=== PATIENT | male | born 1975 | race Caucasian/White ===

== ENCOUNTER 2016-12-31 22:58 | Inpatient (IN) ==
[2016-12-31] MEDS ORDERED: ONDANSETRON 4 MG/2 ML VIAL IV STA (23:29)
[2016-12-31] MEDS ORDERED: KETOROLAC 30 MG/1 ML VIAL IV STA (23:29)
[2016-12-31] MEDS ORDERED: METOCLOPRAMIDE 10 MG/2 ML VIAL IV STA (23:29)
[2016-12-31] MEDS ORDERED: SODIUM CHLORIDE 0.9% 1,000 ML IV STA (23:29)
[2016-12-31] MEDS ORDERED: PANTOPRAZOLE 40 MG VIAL IV STA (23:29)
--- NOTE | 2016-12-31 23:34 | Emergency Department Note ---
Arrival - Arrival Chief Complaint: Abdominal / Flank Pain Stated Complaint: upper abd. pain ED Nursing Triage Note: C/O UPPER RIGHT ABD PAIN WITH ONSET 1800 YESTERDAY EVENING. + NAUSEA Mode of Arrival: Ambulatory Limitations: No Limitations Source: Patient Time Seen by Provider: 12/31/16 23:29 - History of Present Illness HPI Narrative: This 41-year-old white male presents with 24 hours of progressive nausea, right upper quadrant pain, periumbilical pain radiating to the back, a history of recurrent pancreatitis, history of chronic constipation, and a history of cholecystectomy for stones a year ago. The patient denies chills or fever. Of note, associated with onset of the symptoms has been a darkening of urine. Currently although uncomfortable he is in no acute medical distress. Onset (ago): hour(s) (Patient presents 24 hours post onset of symptoms) Allergies/Adverse Reactions: Allergies Allergy/AdvReac Type Severity Reaction Status Date / Time No Known Allergies Allergy Unverified 11/09/15 21:07 Home Medications: Home Medications Medication Instructions Recorded Confirmed Type Insulin Glargine [Lantus] 100 unit SUBCUT BEDTIME 08/30/15 11/02/15 History oxyCODONE/ACETAMINOPHEN 5-325 1 - 2 tablet PO Q6H PRN #20 tablet 11/02/15 Rx [Percocet 5-325] Insulin Glargine [Lantus] 100 unit SUBCUT BEDTIME 11/09/15 11/09/15 History HYDROcodone/ACETAMIN 7.5-325 1 tablet PO Q4H #20 tablet 11/10/15 Rx [[place] 7.5-325] Ondansetron Odt Tab [Zofran Odt] 8 mg PO Q8H #12 tablet 11/10/15 Rx HYDROcodone/ACETAMIN 7.5-325 1 tablet PO Q6H PRN #20 tablet 09/28/16 Rx [[place] 7.5-325] Ondansetron Odt Tab [Zofran Odt] 4 mg PO Q8H PRN #10 tablet 09/28/16 Rx Review of System - Review of System 12 point system: reviewed and no additional remarkable complaints except as stated - Review of System Constitutional: Present: as per HPI Gastrointestinal: Present: as per HPI Genitourinary male: Present: as per HPI Medical,Surgical,& Family Hx - Medical History Endocrine: History of: Diabetes Mellitus (IDDM), Diabetes Mellitus (NIDDM), Dyslipidemia Rheumatology: History of;: Myasthenia Gravis Genitourinary: History of: Kidney Stones Gastrointestinal: History of: Liver Problems (cyst), Pancreatitis (9 TIMES), GI Problems (CHRONIC CONSTIPATION) Musculoskeletal: History of: Musculoskeletal Problems (KNEE AND SHOULDER) Other: History of: Miscellaneous Medical Problems (Splean surg) - Surgical History Cardiac Surgeries: Patient Denies: Cardiac Catheterization Abdominal Surgeries: Surgical HX of: Abdominal Surgery (he states he's had some type of abdominal surgery for repair of the spleen), Cholecystectomy Reproductive Surgeries: Patient denies;: Genitourinary Surgery Orthopedic Surgeries: Surgical HX of;: Orthopedic Surgery (states he's had knee surgery on the left 4 and right shoulder surgery 1) - Family History Family History: Reports;: Family Diabetes, Family Hypertension - Social History Smoking Status: Current every day smoker Frequency of Alcohol Use: None Type of Drug Use: None Exam Physical Examination: GENERAL: Well developed, well nourished white male in no acute distress. HEENT: Normocephalic. No trauma. Moist mucous membranes. EOMI. PERRLA. ENT NML NECK: Supple. No adenopathy. CARDIAC: Regular. No murmurs. CHEST: Clear to auscultation. No respiratory distress. ABDOMEN: Soft. Tender both right upper quadrant and periumbilical with hypoactive bowel sounds. EXTREMITIES: No trauma. Normal ROM. No pedal edema. SKIN: No diaphoresis. No rash. NEURO: Alert. Neuro intact. No focal deficits. Vital Signs: Vital Signs Temperature 97.7 F 12/31/16 23:15 Pulse Rate 80 12/31/16 23:15 Respiratory Rate 18 12/31/16 23:15 Blood Pressure 140/109 12/31/16 23:15 O2 Sat by Pulse Oximetry 97 12/31/16 23:04 Course - Reevaluation(s) Reevaluation #1: I have advised the patient of his acute pancreatitis and need for hospitalization. - Consultations Consultation #1: Discussed with the hospitalist who will admit for further evaluation treatment. Results - Labs CBC & BMP: 12/31/16 23:25 12/31/16 23:25 Labs: I reviewed the patient's laboratory noted very elevated lipase. Disposition Clinical Impression: Acute pancreatitis
[2016-12-31] MEDS ORDERED: PANTOPRAZOLE 40 MG VIAL IV ONE (23:45)
[2016-12-31] MEDS ORDERED: KETOROLAC 30 MG/1 ML VIAL ONE (23:45)
[2016-12-31] MEDS ORDERED: METOCLOPRAMIDE 10 MG/2 ML VIAL ONE (23:45)
[2016-12-31] MEDS ORDERED: ONDANSETRON 4 MG/2 ML VIAL ONE (23:45)
[2016-12-31 23:46] LABS: Apearance,Urine Slightly Hazy (Clear); Bilirubin,Urine Negative (Negative); Blood, Urine Negative (Negative); Glucose,Urine (UA) 150 mg/dL (Negative); Hyaline Casts,Urine 7 /LPF (0-3); Ketones,Urine 5 mg/dL (Negative); Mucus,Urine Many /LPF (Occasional); Nitrite,Urine Negative (Negative); Protein,Urine >=500 MG/DL; RBC,Urine 2 /HPF (0-4); Squamous Epithelial Cell,Urine Occasional /HPF (0-10); Urine Color Amber (Yellow); Urine Specific Gravity 1.028 (1.001-1.035); Urine Urobilinogen < 2.0 EU/DL (0.2-1.0); WBC,Urine 2 /HPF (0-6)
[2016-12-31 23:58] LABS: Barbiturates Screen,Urine Negative (Negative); Benzodiazepines Screen,Urine Negative (Negative); Cannabinoid Screen,Urine Negative (Negative); Opiate Screen,Urine Negative (Negative); Phencyclidine Screen,Urine Negative (Negative)
[2017-01-01] LABS: Basophils # 0.1 10*3/uL (0.0-0.2); Basophils % 0.5 % (0.0-0.8); Eosinophils # 0.2 10*3/uL (0.0-0.87); Eosinophils % 1.6 % (0.00-10.9); Hematocrit 43.3 VOL% (42.0-52.0); Hemoglobin 16.7 GM/DL (14.0-18.0); Immature Granulocytes % 0.5 %; Immature Granulocytes Absolute 0.05 #; Lymphocytes # 2.7 10*3/uL (1.4-4.0); Lymphocytes % 24.3 % (21.2-54.2); Mean Corpuscular HGB Conc 38.6 GM/DL (32-36); Mean Corpuscular Hemoglobin 33 PG (27-34); Mean Corpuscular Volume 85.1 FL (87-102); Mean Platelet Volume 11.1 FL (9.6-12.0); Monocytes # 0.5 10*3/uL (0.11-0.8); Monocytes % 4.9 % (1.7-12.7); Neutrophils # 7.5 10*3/uL (1.4-7.4); Neutrophils % 68.2 % (38.7-73.9); Platelet Count 223 T/CUMM (130-400); Red Blood Count 5.09 MC/CUMM (3.8-5.5); Red Cell Distribution Width 13.7 % (9.3-17.3)
[2017-01-01 00:54] LABS: Alanine Aminotransferase 51 U/L (16-61); Albumin 3.4 G/DL (3.4-5.0); Alkaline Phosphatase 110 U/L (45-117); Amylase 81 U/L (25-115); Blood Urea Nitrogen 9 MG/DL (7-18); Calcium 7.6 MG/DL (8.5-10.1); Glucose 223 MG/DL (74-106); Osmolality,Calculated 273.2 MOS/KG (273-304); Potassium 4.9 MMOL/L (3.5-5.1); Sodium 134 MMOL/L (136-145); Troponin I Only < 0.015 NG/ML (0.00-0.045)
[2017-01-01 00:56] LABS: Aspartate Amino Transferase 77 U/L (0-37)
[2017-01-01] MEDS ORDERED: ONDANSETRON 4 MG/2 ML VIAL IV PRN (02:44)
[2017-01-01] MEDS ORDERED: GLUCAGON 1 MG VIAL IM PRN (02:50)
[2017-01-01] MEDS ORDERED: DEXTROSE 50% 25 GM/50 ML VIAL IV PRN (02:50)
--- NOTE | 2017-01-01 03:22 | Hospitalist History & Physical ---
Assessment and Plan (1) Abdominal pain Status: Acute Current Visit: No (2) Acute pancreatitis Status: Acute Current Visit: No (3) Diabetes mellitus Status: Chronic Current Visit: No Qualifiers: Diabetes mellitus type: type 2 (4) Hyperlipidemia Status: Chronic Assessment and plan: Our plan for this patient will be admitting him to our service. Keep him n.p.o. Recheck labs in the morning. Accu-Cheks before meals and at bedtime once he started eating but initially will be every 6 hours.. Will use sliding scale as needed initially. CT report is consistent with acute pancreatitis Current Visit: No Qualifiers: Hyperlipidemia type: Pure hyperglyceridemia History of Present Illness Chief complaint: Abdominal pain History of present illness: Mr. Albert is a 41 year old male with past medical history of diabetes, myasthenia gravis and pancreatitis presents to our ER tonight. Patient is complaining of right sided abdominal pain. He says it radiates to her shoulder and ribs. He reports is been going on for 2 days. Reminds him of the pain that he had prior to his cholecystectomy. It does not remind him of the pancreatitis pain that he experienced a few months ago. He reports feeling nauseated. He came up to our hospital for further evaluation. Patient's lipase was elevated and I was consulted to admit the patient. During the previous hospitalization he was found to have elevated triglycerides. Home Medications Medication Instructions Recorded Confirmed Type Insulin Glargine [Lantus] 100 unit SUBCUT BEDTIME 08/30/15 11/02/15 History oxyCODONE/ACETAMINOPHEN 5-325 1 - 2 tablet PO Q6H PRN #20 tablet 11/02/15 Rx [Percocet 5-325] Insulin Glargine [Lantus] 100 unit SUBCUT BEDTIME 11/09/15 11/09/15 History HYDROcodone/ACETAMIN 7.5-325 1 tablet PO Q4H #20 tablet 11/10/15 Rx [[place] 7.5-325] Ondansetron Odt Tab [Zofran Odt] 8 mg PO Q8H #12 tablet 11/10/15 Rx HYDROcodone/ACETAMIN 7.5-325 1 tablet PO Q6H PRN #20 tablet 09/28/16 Rx [[place] 7.5-325] Ondansetron Odt Tab [Zofran Odt] 4 mg PO Q8H PRN #10 tablet 09/28/16 Rx Allergies Allergy/AdvReac Type Severity Reaction Status Date / Time No Known Allergies Allergy Unverified 11/09/15 21:07 Medical,Surgical,& Family Hx - Medical History Endocrine: History of: Diabetes Mellitus (IDDM), Diabetes Mellitus (NIDDM), Dyslipidemia Rheumatology: History of;: Myasthenia Gravis Genitourinary: History of: Kidney Stones Gastrointestinal: History of: Liver Problems (cyst), Pancreatitis (9 TIMES), GI Problems (CHRONIC CONSTIPATION) Musculoskeletal: History of: Musculoskeletal Problems (KNEE AND SHOULDER) Other: History of: Miscellaneous Medical Problems (Splean surg) - Surgical History Cardiac Surgeries: Patient Denies: Cardiac Catheterization Abdominal Surgeries: Surgical HX of: Abdominal Surgery (he states he's had some type of abdominal surgery for repair of the spleen), Cholecystectomy Reproductive Surgeries: Patient denies;: Genitourinary Surgery Orthopedic Surgeries: Surgical HX of;: Orthopedic Surgery (states he's had knee surgery on the left 4 and right shoulder surgery 1) - Family History Family History: Reports;: Family Diabetes, Family Hypertension - Social History Smoking Status: Current every day smoker Frequency of Alcohol Use: None Type of Drug Use: None 12 point system: reviewed and no additional remarkable complaints except as stated Exam - Constitutional Vitals: Period Temp Pulse Resp BP Sys/Oneill Pulse Ox Last 24 Hr 97.7 F-97.7 F 80-80 18-18 140-140/109-109 97 General appearance: over weight - Head Head exam: Present: normal inspection - Eye Eye exam: Present: EOMI Pupils: Present: ARTEMIO - ENT ENT exam: Present: normal exam - Neck Neck exam: Present: normal inspection - Respiratory Respiratory exam: Present: clear to auscultation bilaterally - Cardiovascular Cardiovascular exam: Present: regular rate and rhythm - GI/Abdominal GI/Abdominal exam: Present: hypoactive bowel sounds, tenderness (More prominent in the right quadrants) - Extremities Exam Extremities exam: Present: normal inspection - Back Exam Back exam: Present: normal inspection - Neurological Exam Neurological exam: Present: alert - Psychiatric Psychiatric exam: Present: normal affect - Skin Skin exam: Present: normal color Results - Labs CBC & BMP: 12/31/16 23:25 12/31/16 23:25
[2017-01-01 03:55] LABS: Band Neutrophils 1 % (0-10); Eosinophils 1 % (0-10); Lymphocytes 24 % (20-55); Platelet Estimate Normal; Segmented Neutrophils 70 % (50-85); Total Cells Counted 100
[2017-01-01] MEDS: HYDROmorphone 2 MG/1 ML VIAL IV PRN ×3 (04:58→16:13)
[2017-01-01] MEDS: SODIUM CHLORIDE 0.9% 1,000 ML IV SCH ×3 (04:59→21:56)
--- NOTE | 2017-01-01 07:36 | CT Report ---
CT abdomen pelvis w con Indication: Abdominal pain/pancreatitis Comparison: CT abdomen pelvis dated September 28, 2016 Technique: Multiple axial tomographic images of the abdomen and pelvis were obtained after the administration of 100 cc Omnipaque 350 intravenous contrast. Findings: Mild dependent change of the lung bases present. Stable small lymph node within the anterior supradiaphragmatic location on the right. Small hiatal hernia. Diffuse hypoattenuation of liver suggestive of steatosis. The liver appears prominent. Status post cholecystectomy. There is moderate prominence of the pancreatic head with mild surrounding soft tissue stranding suggestive of edema noted predominately posteriorly. Splenomegaly again noted. Bilateral adrenal glands and kidneys grossly unremarkable. Urinary bladder incompletely distended. Prostate and seminal vesicles grossly unremarkable. No evidence of gastrointestinal obstruction or acute appendicitis. Small fat-containing umbilical and right inguinal hernias. Minimal atherosclerotic calcifications present. Osseous and surrounding soft tissue structures appear grossly unchanged. IMPRESSION: Moderate prominence of the pancreatic head with mild surrounding edema consistent with history of pancreatitis. Other detailed findings including hepatic steatosis, splenomegaly, cholecystectomy, and small hiatal hernia as above. Preliminary report was issued by [facility]. The CT exam was performed using one or more of the following dose reduction techniques: Automated exposure control, adjustment of the mA and/or kV according to patient size, or use of iterative reconstruction technique. PROCEDURE INTERPRETED AT [facility] DEPARTMENT OF RADIOLOGY Final Report Signed by: Dr Rico Segundo
--- NOTE | 2017-01-01 08:16 | XRay Report ---
XR chest 1V portable Indication: SOB Comparison: Chest x-ray dated October 20, 2015 Technique: Single frontal view of the chest Findings: Cardiomediastinal silhouette is stable in configuration. No focal consolidation, pleural effusion, or pneumothorax. Osseous and surrounding soft tissue structures appear grossly unchanged. IMPRESSION: No acute cardiopulmonary process demonstrated. PROCEDURE INTERPRETED AT [facility] DEPARTMENT OF RADIOLOGY Final Report Signed by: Dr Rico Segundo
[2017-01-01] MEDS: INSULIN REGULAR 100 UNIT/ML SUBCUT SCH ×4 (08:41→20:35)
[2017-01-01 08:42] LABS: Basophils # 0.1 10*3/uL (0.0-0.2); Basophils % 0.6 % (0.0-0.8); Eosinophils # 0.2 10*3/uL (0.0-0.87); Eosinophils % 1.9 % (0.00-10.9); Hematocrit 40.6 VOL% (42.0-52.0); Hemoglobin 14.8 GM/DL (14.0-18.0); Immature Granulocytes % 0.4 %; Immature Granulocytes Absolute 0.03 #; Lymphocytes # 2.7 10*3/uL (1.4-4.0); Lymphocytes % 33.6 % (21.2-54.2); Mean Corpuscular HGB Conc 36.5 GM/DL (32-36); Mean Corpuscular Hemoglobin 31 PG (27-34); Mean Corpuscular Volume 85.8 FL (87-102); Monocytes # 0.4 10*3/uL (0.11-0.8); Monocytes % 5.1 % (1.7-12.7); Neutrophils # 4.6 10*3/uL (1.4-7.4); Neutrophils % 58.4 % (38.7-73.9); Platelet Count 132 T/CUMM (130-400); Red Blood Count 4.73 MC/CUMM (3.8-5.5); Red Cell Distribution Width 13.6 % (9.3-17.3); White Blood Count 7.9 T/CUMM (4-12)
[2017-01-01 09:32] LABS: Risk Ratio 13.45
[2017-01-01 09:58] LABS: Albumin 3.1 G/DL (3.4-5.0); Bilirubin,Total 0.6 MG/DL (0.2-1.0); Potassium 3.7 MMOL/L (3.5-5.1)
[2017-01-01 10:15] LABS: Total Protein 5.5 G/DL (6.4-8.3)
[2017-01-01 10:16] LABS: Calcium 7.5 MG/DL (8.5-10.1)
[2017-01-01] MEDS: FENOFIBRATE 145 MG TABLET PO SCH (16:13)
[2017-01-01] MEDS: ATORVASTATIN 40 MG TABLET PO SCH (20:37)
[2017-01-02] MEDS: SODIUM CHLORIDE 0.9% 1,000 ML IV SCH ×2 (05:26→21:35)
[2017-01-02 07:27] LABS: Basophils % 0.5 % (0.0-0.8); Eosinophils # 0.1 10*3/uL (0.0-0.87); Eosinophils % 1.8 % (0.00-10.9); Hematocrit 39.5 VOL% (42.0-52.0); Hemoglobin 14.1 GM/DL (14.0-18.0); Immature Granulocytes % 0.2 %; Immature Granulocytes Absolute 0.01 #; Lymphocytes # 1.7 10*3/uL (1.4-4.0); Lymphocytes % 30.3 % (21.2-54.2); Mean Corpuscular HGB Conc 35.7 GM/DL (32-36); Mean Corpuscular Hemoglobin 31 PG (27-34); Mean Corpuscular Volume 86.1 FL (87-102); Monocytes # 0.3 10*3/uL (0.11-0.8); Monocytes % 4.5 % (1.7-12.7); Neutrophils # 3.5 10*3/uL (1.4-7.4); Neutrophils % 62.7 % (38.7-73.9); Platelet Count 114 T/CUMM (130-400); Red Blood Count 4.59 MC/CUMM (3.8-5.5); Red Cell Distribution Width 13.3 % (9.3-17.3); White Blood Count 5.6 T/CUMM (4-12)
[2017-01-02 08:04] LABS: Calcium 8.2 MG/DL (8.5-10.1); Osmolality,Calculated 274.7 MOS/KG (273-304); Potassium 3.9 MMOL/L (3.5-5.1)
[2017-01-02] MEDS: INSULIN REGULAR 100 UNIT/ML SUBCUT SCH ×4 (09:05→20:28)
[2017-01-02] MEDS: FENOFIBRATE 145 MG TABLET PO SCH (09:06)
--- NOTE | 2017-01-02 16:03 | Hospitalist Progress Note ---
Assessment and Plan (1) Acute pancreatitis Status: Acute Assessment and plan: improving, Lipase level is improving. He is s/p cholecystectomy. He is being treated for elevated triglycerides. Plan -will start clear liquids -Lipase level in am -continue with IVF, pain meds Current Visit: No (2) Hyperlipidemia Status: Chronic Assessment and plan: continue with statins and tricor Current Visit: No Qualifiers: Hyperlipidemia type: Pure hyperglyceridemia (3) Diabetes mellitus Status: Chronic Assessment and plan: continue with SSC insulin, check HbA1c level. Current Visit: No Qualifiers: Diabetes mellitus type: type 2 Hospitalist: Subjective Interval history: Patient seen. He feels better. He had some diarrhoea this am but abdominal pain has improved.Lipase level is improving Exam - Constitutional Vitals: Period Temp Pulse Resp BP Sys/Oneill Pulse Ox Last 24 Hr 97.0 F-99.1 F 58-80 16-18 109-139/62-84 95-98 General appearance: no acute distress - Head Head exam: Present: normal inspection - Eye Eye exam: Present: EOMI - Respiratory Respiratory exam: Present: clear to auscultation bilaterally - Cardiovascular Cardiovascular exam: Present: regular rate and rhythm - GI/Abdominal GI/Abdominal exam: Present: other (mild tenderness) - Extremities Exam Extremities exam: Present: normal inspection Results - Labs CBC & BMP: 01/02/17 06:40 01/02/17 06:40 Lab Results: I have reviewed the past 24 hour labs
[2017-01-02] MEDS ORDERED: ENOXAPARIN 40 MG/0.4 ML SYRINGE SUBCUT SCH (18:00)
[2017-01-02] MEDS: ATORVASTATIN 40 MG TABLET PO SCH (21:36)
[2017-01-03] MEDS: SODIUM CHLORIDE 0.9% 1,000 ML IV SCH (03:22)
[2017-01-03 07:30] LABS: Basophils % 0.7 % (0.0-0.8); Eosinophils # 0.1 10*3/uL (0.0-0.87); Hematocrit 38.4 VOL% (42.0-52.0); Hemoglobin 13.8 GM/DL (14.0-18.0); Immature Granulocytes % 0.2 %; Immature Granulocytes Absolute 0.01 #; Lymphocytes # 1.7 10*3/uL (1.4-4.0); Lymphocytes % 31.3 % (21.2-54.2); Mean Corpuscular HGB Conc 35.9 GM/DL (32-36); Mean Corpuscular Hemoglobin 31 PG (27-34); Mean Corpuscular Volume 86.1 FL (87-102); Mean Platelet Volume 9.8 FL (9.6-12.0); Monocytes # 0.3 10*3/uL (0.11-0.8); Monocytes % 5.8 % (1.7-12.7); Neutrophils # 3.3 10*3/uL (1.4-7.4); Platelet Count 106 T/CUMM (130-400); Red Blood Count 4.46 MC/CUMM (3.8-5.5); Red Cell Distribution Width 13.2 % (9.3-17.3); White Blood Count 5.5 T/CUMM (4-12)
[2017-01-03 08:06] LABS: Bilirubin,Total 0.8 MG/DL (0.2-1.0); Calcium 8.1 MG/DL (8.5-10.1); Osmolality,Calculated 278.4 MOS/KG (273-304); Potassium 3.8 MMOL/L (3.5-5.1); Total Protein 5.6 G/DL (6.4-8.3)
[2017-01-03] MEDS: FENOFIBRATE 145 MG TABLET PO SCH (08:28)
[2017-01-03] MEDS ORDERED: PANTOPRAZOLE 40 MG VIAL IV SCH (09:00)
--- NOTE | 2017-01-03 09:41 | Discharge Summary ---
<Renato Valladaresric - Last Filed: 01/03/17 09:30> Hospital Course - Hospital Course Hospital Course: This patient is a 41-year-old male who was admitted through the [place] ED on with complaints of right-sided abdominal pain. Patient's lipase on admission was 1209 and triglycerides were elevated at 2065. Abdominal CT on admission show moderate prominence of the pancreatic head with mild surrounding edema consistent with history of pancreatitis. The patient was kept n.p.o. and started on IV fluids. He was treated for his elevated triglycerides with statins and TriCor. Hospital course was relatively uncomplicated highlighted a medical management of his hypertriglyceridemia and diabetes. His lipase continued to trend downward with therapy. At this time the patient has reached maximum benefit from hospitalization and is stable for discharge. He will be discharged home to self with appropriate instructions per discharge orders and addendum to followed by Dr. Kaufman. - Time spent with patient Time with patient DS: Greater than 30 minutes Discharge Plan - Discharge Data Disposition: Disch To Home/Self Care - Discharge Medications New Fenofibrate [Tricor] 145 mg PO DAILY #30 tablet Atorvastatin [Lipitor] 40 mg PO BEDTIME #30 tablet HYDROcodone/ACETAMIN 5-325 [[place] 5-325] 1 tablet PO Q6H PRN #20 tablet PRN Reason: Abdominal Pain Continue Insulin Glargine [Lantus] 40 units SUBCUT BEDTIME - Follow Up or Referral - Forms/Instructions Exam - Constitutional Vitals: Period Temp Pulse Resp BP Sys/Oneill Pulse Ox Last 24 Hr 97.1 F-98.8 F 62-72 16-20 114-142/53-81 96-99 Discharge Results Procedures and tests throughout hospitalization: Pending Orders 01/01/17 15:15 Blood Culture Routine 01/02/17 19:27 Stool Culture Routine Labs on day of discharge: Labs from last 24 hours 01/03/17 01/03/17 01/03/17 12:41 07:31 07:07 WBC RBC Hgb Hct MCV MCH MCHC RDW Plt Count MPV Neut % (Auto) Lymph % (Auto) [place] % (Auto) Eos % (Auto) Baso % (Auto) Neut # (Auto) Lymph # (Auto) [place] # (Auto) Eos # (Auto) Baso # (Auto) Immature Gran % Nucleated RBC % Immature Gran # Nucleated RBCs # Sodium 140 Potassium 3.8 Chloride 106 Carbon Dioxide 25 Anion Gap 12.8 BUN 10 Creatinine 0.90 GFR Calculation 134 BUN/Creatinine Ratio 11.00 Glucose 124 H POC Glucose 85 113 H Hemoglobin A1c Calculated Osmolality 278.4 Calcium 8.1 L Total Bilirubin 0.80 AST 29 ALT 43 Alkaline Phosphatase 96 Total Protein 5.6 L Albumin 3.0 L Globulin 2.6 Albumin/Globulin Ratio 1.1 Lipase 01/03/17 01/03/17 01/02/17 07:07 07:07 19:06 WBC 5.5 RBC 4.46 Hgb 13.8 L Hct 38.4 L MCV 86.1 L MCH 31 MCHC 35.9 RDW 13.2 Plt Count 106 L MPV 9.8 Neut % (Auto) 60.0 Lymph % (Auto) 31.3 [place] % (Auto) 5.8 Eos % (Auto) 2.0 Baso % (Auto) 0.7 Neut # (Auto) 3.3 Lymph # (Auto) 1.7 [place] # (Auto) 0.3 Eos # (Auto) 0.1 Baso # (Auto) 0.0 Immature Gran % 0.2 Nucleated RBC % 0.0 Immature Gran # 0.01 Nucleated RBCs # 0.00 Sodium Potassium Chloride Carbon Dioxide Anion Gap BUN Creatinine GFR Calculation BUN/Creatinine Ratio Glucose POC Glucose 120 H Hemoglobin A1c Calculated Osmolality Calcium Total Bilirubin AST ALT Alkaline Phosphatase Total Protein Albumin Globulin Albumin/Globulin Ratio Lipase 437.0 H 01/02/17 01/02/17 01/02/17 18:32 16:14 06:40 WBC RBC Hgb Hct MCV MCH MCHC RDW Plt Count MPV Neut % (Auto) Lymph % (Auto) [place] % (Auto) Eos % (Auto) Baso % (Auto) Neut # (Auto) Lymph # (Auto) [place] # (Auto) Eos # (Auto) Baso # (Auto) Immature Gran % Nucleated RBC % Immature Gran # Nucleated RBCs # Sodium Potassium Chloride Carbon Dioxide Anion Gap BUN Creatinine GFR Calculation BUN/Creatinine Ratio Glucose POC Glucose 135 H 105 Hemoglobin A1c 7.4 H Calculated Osmolality Calcium Total Bilirubin AST ALT Alkaline Phosphatase Total Protein Albumin Globulin Albumin/Globulin Ratio Lipase Preliminary micro results at discharge 01/02/17 19:27 Stool Culture - Preliminary Stool No enteric pathogens at 12 hrs 01/01/17 15:15 Blood Culture - Preliminary Blood No growth at 1 day 01/01/17 15:15 Blood Culture - Preliminary Blood No growth at 1 day DS: Provider Date of admission: 01/01/17 02:44 Primary care physician: . No PCP Attending physician on admission: Esteban Roger MD Discharging clinician: Robin ROBERTSON Expected date of discharge: 01/03/17 <Danielle Kaufman - Last Filed: 01/03/17 13:09> Hospital Course - Hospital Course Hospital Course: Patient is s/p cholecystectomy. Vitals are stable, he is tolerating oral feeds. Will follow with PCP in 1week - Time spent with patient Time with patient DS: Greater than 30 minutes (Time spent: 35mins) Diagnosis - Discharge Diagnosis (1) Acute pancreatitis Status: Acute (2) Hyperlipidemia Status: Chronic (3) Diabetes mellitus Status: Chronic Discharge Plan - Discharge Data Condition at Discharge: Stable Discharge Diet: diabetic diet, low fat, low cholesterol Activity: resume usual activities as tolerated Exam - Constitutional General appearance: no acute distress - Head Head exam: Present: normal inspection - Respiratory Respiratory exam: Present: clear to auscultation bilaterally - Cardiovascular Cardiovascular exam: Present: regular rate and rhythm - GI/Abdominal GI/Abdominal exam: Present: normal bowel sounds - Extremities Exam Extremities exam: Present: normal inspection
[2017-01-03] MEDS: INSULIN REGULAR 100 UNIT/ML SUBCUT SCH (10:10)
[2017-01-03 13:39] VITALS: BP 130/65
== END 2017-01-03 14:00 | disposition home or self-care (01) | DRG 440 ==
LOC: N.ED 22:58 → N.EDINP 01-01 02:44 → SUATTDRO 01-01 02:44 → N.5E 01-01 03:51
PROVIDERS: ADMIT Internal Medicine; ATTEND Internal Medicine